=== PATIENT | female | born 1975 | race Caucasian/White ===

== ENCOUNTER 2016-05-29 14:25 | Emergency (ER) | payer SELFPAY ==
--- NOTE | ~2016-05-29 | CR63 ---
[facility] A Service of [facility] RADIOLOGY TEXT RESULTS PATIENT: ANDREA MOREL LOCATION: CFTX : 73 UNIT #: [id number] AGE: [address]: Yue Peacock SEX: F ORDER DR: [id number] [facility] [address] [place], [place] [address] [id number] E MR#: [id number] Acc #: [id number] NAME: ANDREA MOREL : 1975 SEX: F STUDY DATE/TIME: 05/29/2016 14:09 UNIT: [facility] ROOM: STUDY DESCRIPTION: CR Chest 2 View Attending Physician: Yue Peacock P.A.-C. Ordering Physician: Yue Peacock P.A.-C. Primary Care Physician: Marcia Peck MEDICAL IMAGING REPORT This report is preliminary unless electronic signature is present EXAM PA and lateral chest 05/29/2016 COMPARISON 11/13/2011 HISTORY SUPPLIED Cough, congestion for 3 days FINDINGS PA and lateral chest are obtained. The cardiovascular configuration is normal and the lungs are clear. CONCLUSION Normal chest. Dictated by... Mamadou Fonseca M.D. THIS IS AN ELECTRONICALLY VERIFIED REPORT Mamadou Fonseca M.D. at 05/31/2016 2:19 PM ROCAELK/antoinette TD: 05/29/2016 21:28 JOB #: [id number] MEDICAL IMAGING REPORT Page 1 of 1 COPY
[~2016-05-29 14:25] MED LIST: ALBUTEROL17 GM INH; BENZONATATE PO; CLARITIN10 M1 PO; DELSYM30 MG/5 M1 PO; FIORICET W/CODE1 CAP; FLEXERIL; IBUPROFEN; NITROSTAT0.4 MG SL; NO MEDICATIONS; ORUDIS75 M1 PO; PAXIL; PROZAC PO; TESSALON200 MG PO; TOPAMAX25 MG PO
[2016-05-29 14:51] LABS: INFLUENZA A NEG (NEG); INFLUENZA B NEG (NEG)
== END 2016-05-29 15:24 | disposition home or self-care (01) ==
LOC: CFTX 14:25
PROVIDERS: Physician Assistant
DX: J01.90 Acute sinusitis, unspecified (principal); F41.9 Anxiety disorder, unspecified; F17.210 Nicotine dependence, cigarettes, uncomplicated; Z90.710 Acquired absence of both cervix and uterus
CPT/HCPCS: 71020; 87804; 99283